=== PATIENT | female | born 2000 | race Hispanic/Latino ===

== ENCOUNTER 2021-12-06 13:32 | Outpatient (CLI) | payer OTHER | END 2021-12-06 13:33 | disposition home or self-care (01) | LOC: BICULT 13:32 → EDSTATUS 14:00 | PROVIDERS: ATTEND Nurse Practitioner | DX: Z34.83 Encounter for supervision of other normal pregnancy, third trimester (principal); Z3A.29 29 weeks gestation of pregnancy | CPT/HCPCS: 76805 ==